=== PATIENT | female | born 1990 | race Caucasian/White ===

== ENCOUNTER 2020-01-15 19:11 | Emergency (ER) | payer SELFPAY ==
[2020-01-15 20:40] LABS: microscopic required? YES; urine erythrocyte TRACE (NEGATIVE)
[2020-01-15 20:44] LABS: BASOPHIL % 0.1 % (0-2); PLATELET COUNT 234 x10^3mcL (130-400); RED CELL DISTRIBUTION WIDTH 12.9 % (11.5-14.5)
[2020-01-15 20:53] LABS: CALCIUM 8.5 mg/dL (8.5-10.1); CARBON DIOXIDE 26.8 mmol/L (21-32); CHLORIDE SERUM 106 mmol/L (98-107); CREATININE SERUM 0.7 mg/dL (0.6-1.0); GFR1 > 60 mL/min; GLUCOSE SERUM 99 mg/dL (74-106); POTASSIUM SERUM 3.6 mmol/L (3.5-5.1); SODIUM SERUM 140 mmol/L (136-145)
[2020-01-15 20:58] LABS: ALKALINE PHOSPHATASE 133 U/L (46-116); ALT/SGPT 264 U/L (14-59); AST/SGOT 222 U/L (15-37); BILIRUBIN TOTAL 0.22 mg/dL (0.20-1.00); LIPASE 310 IU/L (73-393); TOTAL PROTEIN, SERUM 6.4 g/dL (6.4-8.2)
[2020-01-15 20:59] LABS: ALBUMIN 2.8 g/dL (3.4-5.0)
[2020-01-15 23:22] VITALS: BP 106/54
== END 2020-01-15 23:22 | disposition home or self-care (01) ==
LOC: ED 19:11
PROVIDERS: Emergency Medicine
DX: K52.9 Noninfective gastroenteritis and colitis, unspecified (principal); Z88.8 Allergy status to other drugs, medicaments and biological substances
CPT/HCPCS: J0696; J1200; J2270; J2405; J2543; J3010; J7030; J7060; Q9967